=== PATIENT | female | born 1970 | race Caucasian/White ===

== ENCOUNTER → 2022-06-03 | Outpatient (CLI) | payer MEDICARE, OTHER ==
[~2022-06-03] MED LIST: ALAWAY10 ML EYEBOTH; BACTRIM DS TAB1 EACH PO; BRIVIACT PO; CEFUROXIME500 MG PO; CELEXA10 MG PO; FLONASE ALLER15.8 ML; HALDOL 5 MG TAB5 MG PO; IBUPROFEN400 MG PO; IBUPROFEN600 MG PO; INGREZZA PO; K-DUR TAB 10 M10 MEQ PO; LOTRIMIN CREAM15 GM TP; LOTRIMIN CREAM45 GM TOP; POLYETHYLENE GL17 GM PO; SEROQUEL100 MG PO; TROKENDI XR200 MG PO; VISTARIL25 MG PO; ZANTAC150 MG PO; ZYRTEC10 M3 PO
== END ==
LOC: CT 12:55
DX: R91.8 Other nonspecific abnormal finding of lung field (principal); J98.11 Atelectasis
CPT/HCPCS: 71270; Q9967